=== PATIENT | female | born 1990 | race Caucasian/White ===

== ENCOUNTER → 2017-01-14 | Outpatient (CLI) | payer BC | END | disposition home or self-care (01) | LOC: CFH 10:53 | PROVIDERS: ATTEND Internal Medicine Cardiovascular Disease | DX: I51.7 Cardiomegaly (principal) | CPT/HCPCS: 93306 ==

== ENCOUNTER 2018-02-10 07:29 | Inpatient (IN) | payer BC, OTHER ==
[~2018-02-10] VITALS: Ht 162.6 cm; Wt 103.0 kg
[2018-02-10] MEDS ORDERED: D5%-LACTATED RINGERS 1,000 ML IV SCH (21:23)
[2018-02-10] MEDS ORDERED: OXYTOCIN 30U/ 0.9% NaCL 500ML 500 ML IV PRN (21:23)
[2018-02-10] MEDS ORDERED: OXYTOCIN 30U/ 0.9% NaCL 500ML 500 ML IV ONE (21:23)
[2018-02-10 21:30] VITALS: BP 119/59
[2018-02-10] MEDS ORDERED: NEWBORN KIT ONE (21:30)
[2018-02-10] MEDS ORDERED: FENTANYL PF 100 MCG/2ML IVPush PRN (21:30)
[2018-02-10] MEDS ORDERED: MISOPROSTOL 25 MCG TABLET ONE (21:30)
[2018-02-10] MEDS ORDERED: FENTANYL PF 100 MCG/2ML IV PRN (21:30)
[2018-02-10] MEDS ORDERED: ONDANSETRON 2MG/ML, 2ML IVPush PRN (21:30)
[2018-02-10] MEDS ORDERED: MISOPROSTOL 200 MCG TABLET ONE (21:31)
[2018-02-10] MEDS ORDERED: OXYTOCIN 30U/ 0.9% NaCL 500ML 500 ML ONE (21:31)
[2018-02-10 21:43] LABS: BASOPHILS # (AUTO) 0.03 x10^3/uL (0-0.1); BASOPHILS % (AUTO) 0 % (0-1); EOSINOPHILS # (AUTO) 0.11 x10^3/uL (0-0.4); EOSINOPHILS % (AUTO) 1 % (1-7); LYMPHOCYTES # (AUTO) 1.76 x10^3/uL (1-3.4); LYMPHOCYTES % (AUTO) 21 % (22-44); MD NO; MEAN CORPUSCULAR HEMOGLOBIN 25.9 pg (27.0-34.8); MEAN CORPUSCULAR HGB CONC 32.7 g/dL (32.4-35.8); MONOCYTES # (AUTO) 0.72 x10^3/uL (0.2-0.8); MONOCYTES % (AUTO) 9 % (2-9); NEUTROPHILS % (AUTO) 69 % (42-75); PLATELET COUNT 289 x10^3/uL (130-400); RED CELL DISTRIBUTION WIDTH 19.8 % (9.6-15.2)
[2018-02-10] MEDS: LACTATED RINGERS 1,000 ML IV SCH (22:00)
[2018-02-10] MEDS ORDERED: PLEASE ENTER ALLERGIES MC SCH (22:30)
[2018-02-11] MEDS: LACTATED RINGERS 1,000 ML IV SCH ×3 (05:08→15:38)
[2018-02-11] MEDS ORDERED: MISOPROSTOL 25 MCG TABLET ONE ×2 (10:31→14:34)
[2018-02-11] MEDS: MISOPROSTOL 25 MCG TABLET VG PRN ×2 (10:34→14:42)
== END 2018-02-11 23:05 | disposition home or self-care (01) | DRG 833 ==
LOC: LDIP 21:21
PROVIDERS: ADMIT Obstetrics & Gynecology Maternal & Fetal Medicine; ATTEND Obstetrics & Gynecology Maternal & Fetal Medicine
DX: O26.893 Other specified pregnancy related conditions, third trimester (principal); O61.9 Failed induction of labor, unspecified; Z3A.39 39 weeks gestation of pregnancy
CPT/HCPCS: 36415; 85025; 86850; 86900; G0378; J2590; J7120

== ENCOUNTER 2018-02-17 22:13 | Inpatient (IN) | payer OTHER ==
[~2018-02-17] VITALS: Ht 162.6 cm; Wt 103.2 kg
[2018-02-17] MEDS ORDERED: NEWBORN KIT ONE ×2 (22:20→22:45)
[2018-02-17] MEDS ORDERED: LIDOCAINE/PF 1%, 30ML ONE (22:45)
[2018-02-17] MEDS ORDERED: MISOPROSTOL 200 MCG TABLET ONE (22:45)
[2018-02-17] MEDS ORDERED: OXYTOCIN 30U/ 0.9% NaCL 500ML 500 ML ONE (22:45)
[2018-02-17] MEDS ORDERED: OXYTOCIN 30U/ 0.9% NaCL 500ML 500 ML IV ONE (22:48)
[2018-02-17] MEDS ORDERED: OXYTOCIN 30U/ 0.9% NaCL 500ML 500 ML IV PRN (22:48)
[2018-02-17] MEDS ORDERED: D5%-LACTATED RINGERS 1,000 ML IV SCH (22:48)
[2018-02-17 22:50] VITALS: BP 123/71
[2018-02-17] MEDS ORDERED: MISOPROSTOL 25 MCG TABLET ONE (22:55)
[2018-02-17] MEDS ORDERED: TERBUTALINE 1 MG/ML, 1ML IVPush PRN (23:00)
[2018-02-17] MEDS ORDERED: CALCIUM CARBONATE 500 MG TAB.CHEW PO PRN (23:00)
[2018-02-17] MEDS ORDERED: MISOPROSTOL 25 MCG TABLET VG PRN (23:00)
[2018-02-17] MEDS ORDERED: FENTANYL PF 100 MCG/2ML IV PRN (23:00)
[2018-02-17] MEDS ORDERED: ONDANSETRON 2MG/ML, 2ML IVPush PRN (23:00)
[2018-02-17] MEDS ORDERED: PREN1TAB60 PO (23:01)
[2018-02-17] MEDS ORDERED: Iron PO (23:01)
[2018-02-17 23:22] LABS: BASOPHILS # (AUTO) 0.02 x10^3/uL (0-0.1); BASOPHILS % (AUTO) 0 % (0-1); EOSINOPHILS # (AUTO) 0.09 x10^3/uL (0-0.4); EOSINOPHILS % (AUTO) 1 % (1-7); LYMPHOCYTES # (AUTO) 1.99 x10^3/uL (1-3.4); LYMPHOCYTES % (AUTO) 21 % (22-44); MD NO; MEAN CORPUSCULAR HEMOGLOBIN 25.8 pg (27.0-34.8); MEAN CORPUSCULAR HGB CONC 32.7 g/dL (32.4-35.8); MEAN CORPUSCULAR VOLUME 78.7 fL (80-100); MEAN PLATELET VOLUME 8.3 fL (7.4-10.4); MONOCYTES # (AUTO) 0.79 x10^3/uL (0.2-0.8); MONOCYTES % (AUTO) 8 % (2-9); NEUTROPHILS # (AUTO) 6.51 x10^3/uL (1.8-6.8); NEUTROPHILS % (AUTO) 69 % (42-75); PLATELET COUNT 306 x10^3/uL (130-400); RED CELL DISTRIBUTION WIDTH 19.6 % (9.6-15.2)
[2018-02-17] MEDS: LACTATED RINGERS 1,000 ML IV SCH (23:23)
[2018-02-18] MEDS: LACTATED RINGERS 1,000 ML IV SCH (04:37)
[2018-02-18] MEDS ORDERED: ACETAMINOPHEN 325 MG TABLET ONE (06:12)
[2018-02-18] MEDS ORDERED: FENTANYL PF 100 MCG/2ML ONE ×2 (09:33→10:49)
[2018-02-18] MEDS: FENTANYL PF 100 MCG/2ML IVPush PRN ×2 (09:35→10:53)
[2018-02-18] MEDS ORDERED: OXYTOCIN 30U/ 0.9% NaCL 500ML 500 ML IV SCH (10:51)
[2018-02-18] MEDS ORDERED: MISOPROSTOL 200 MCG TABLET PR PRN (11:00)
[2018-02-18] MEDS ORDERED: DIPH,PERTUSS(ACELL),TET VAC/PF NC IM-VACC PRN (11:00)
[2018-02-18] MEDS ORDERED: METHYLERGONOVINE 0.2 MG/ML IM PRN (11:00)
[2018-02-18] MEDS ORDERED: CARBOPROST TROMETHAMINE 250 MCG/ML, 1ML IM PRN (11:00)
[2018-02-18] MEDS ORDERED: DOCUSATE 100 MG CAPSULE PO PRN (11:00)
[2018-02-18] MEDS ORDERED: MEASLES,MUMPS&RUBELLA VACC/PF 0.5 ML SQ PRN (11:00)
[2018-02-18] MEDS ORDERED: OXYcodone/APAP 10/325MG TABLET ONE (12:07)
[2018-02-18] MEDS ORDERED: OXYcodone/APAP 5/325MG TABLET ONE (12:08)
[2018-02-18] MEDS ORDERED: IBUPROFEN 600 MG TABLET ONE ×2 (12:08→12:11)
[2018-02-18] MEDS: IBUPROFEN 600 MG TABLET PO PRN ×2 (12:17→19:42)
[2018-02-18] MEDS ORDERED: OXYcodone/APAP 5/325MG TABLET PO PRN ×2 (12:30)
[2018-02-18 13:40] VITALS: BP 115/72
[2018-02-18 18:07] VITALS: BP 117/76
[2018-02-18 18:38] LABS: BASOPHILS # (AUTO) 0.04 x10^3/uL (0-0.1); BASOPHILS % (AUTO) 0 % (0-1); EOSINOPHILS # (AUTO) 0.02 x10^3/uL (0-0.4); EOSINOPHILS % (AUTO) 0 % (1-7); LYMPHOCYTES # (AUTO) 1.65 x10^3/uL (1-3.4); LYMPHOCYTES % (AUTO) 13 % (22-44); MD NO; MEAN CORPUSCULAR HEMOGLOBIN 26.1 pg (27.0-34.8); MEAN CORPUSCULAR HGB CONC 32.8 g/dL (32.4-35.8); MEAN CORPUSCULAR VOLUME 79.6 fL (80-100); MEAN PLATELET VOLUME 8.5 fL (7.4-10.4); MONOCYTES # (AUTO) 0.98 x10^3/uL (0.2-0.8); MONOCYTES % (AUTO) 8 % (2-9); NEUTROPHILS # (AUTO) 10.36 x10^3/uL (1.8-6.8); NEUTROPHILS % (AUTO) 79 % (42-75); PLATELET COUNT 282 x10^3/uL (130-400); RED BLOOD COUNT 4.41 x10^6/uL (3.82-5.3); RED CELL DISTRIBUTION WIDTH 19.3 % (9.6-15.2)
[2018-02-18 19:20] VITALS: BP 117/70
[2018-02-19 00:05] VITALS: BP 105/67
[2018-02-19 03:55] VITALS: BP 113/72
[2018-02-19 08:01] VITALS: BP 120/88
[2018-02-19] MEDS ORDERED: PRENATAL VIT/IRON/FA 1 EACH TABLET PO SCH (09:00)
[2018-02-19] MEDS ORDERED: IBUP-1222 PO (11:44)
== END 2018-02-19 12:50 | disposition home or self-care (01) | DRG 807 ==
LOC: LDIP 22:13 → 2NW 02-18 13:16
PROVIDERS: ADMIT Obstetrics & Gynecology Maternal & Fetal Medicine; ATTEND Obstetrics & Gynecology Maternal & Fetal Medicine
PROC: 3E033VJ Introduction of Other Hormone into Peripheral Vein, Percutaneous Approach (ICD-10-PCS; principal; 2018-02-18)
PROC: 10E0XZZ Delivery of Products of Conception, External Approach (ICD-10-PCS; 2018-02-18)
DX: O70.0 First degree perineal laceration during delivery (principal); Z37.0 Single live birth; Z3A.40 40 weeks gestation of pregnancy
CPT/HCPCS: 36415; 85025; 86850; 86900; 90715; G0378; J3010; J2590; J7120

== ENCOUNTER 2019-07-05 13:52 | Day surgery (SDC) | payer SELFPAY ==
[~2019-07-05] VITALS: Ht 165.1 cm; Wt 101.3 kg
[~2019-07-05 13:52] MED LIST: IBUP-1222 PO; Iron PO; PREN1TAB60 PO
[2019-07-05] MEDS ORDERED: LACTATED RINGERS 1,000 ML IV SCH (14:09)
[2019-07-05 14:20] VITALS: BP 145/83
[2019-07-05] MEDS ORDERED: PLEASE ENTER HEIGHT AND WEIGHT MC SCH (14:30)
[2019-07-05 14:44] LABS: BASOPHILS # (AUTO) 0.04 x10^3/uL (0-0.1); BASOPHILS % (AUTO) 0 % (0-1); EOSINOPHILS # (AUTO) 0.06 x10^3/uL (0-0.4); EOSINOPHILS % (AUTO) 1 % (1-7); LYMPHOCYTES # (AUTO) 2.03 x10^3/uL (1-3.4); LYMPHOCYTES % (AUTO) 22 % (22-44); MD NO; MEAN CORPUSCULAR HEMOGLOBIN 24.3 pg (27.0-34.8); MEAN CORPUSCULAR HGB CONC 31.9 g/dL (32.4-35.8); MEAN CORPUSCULAR VOLUME 76.1 fL (80-100); MEAN PLATELET VOLUME 7.6 fL (7.4-10.4); MONOCYTES # (AUTO) 0.61 x10^3/uL (0.2-0.8); MONOCYTES % (AUTO) 7 % (2-9); NEUTROPHILS # (AUTO) 6.46 x10^3/uL (1.8-6.8); NEUTROPHILS % (AUTO) 70 % (42-75); PLATELET COUNT 390 x10^3/uL (130-400); RED BLOOD COUNT 4.92 x10^6/uL (3.82-5.3)
[2019-07-05 14:54] LABS: ANION GAP 7 mmol/L (5-15); CALCIUM 9.6 mg/dL (8.5-10.1); CHLORIDE 107 mmol/L (98-107); CREATININE 0.67 mg/dL (0.55-1.02)
[2019-07-05] MEDS ORDERED: MISOPROSTOL 200 MCG TABLET ONE (15:39)
[2019-07-05] MEDS ORDERED: OXYTOCIN 10 UNITS/ML, 1ML ONE (15:39)
[2019-07-05] MEDS ORDERED: SILVER NITRATE STICK TP ONE (15:39)
[2019-07-05] MEDS ORDERED: VASOPRESSIN 20 UNIT/ML, 1ML ONE ×2 (15:39→15:40)
[2019-07-05] MEDS ORDERED: METHYLERGONOVINE 0.2 MG/ML IM ONE (15:39)
[2019-07-05] MEDS ORDERED: FENTANYL PF 250 MCG/5ML ONE (15:48)
[2019-07-05] MEDS ORDERED: SUCCINYLCHOLINE 20 MG/ML, 10ML ONE (15:48)
[2019-07-05] MEDS ORDERED: ROCURONIUM 10MG/ML,5ML ONE (15:48)
[2019-07-05] MEDS ORDERED: PROPOFOL 10 MG/ML, 20ML ONE (15:48)
[2019-07-05] MEDS ORDERED: MIDAZOLAM 1 MG/ML, 2ML ONE (15:48)
[2019-07-05] MEDS ORDERED: DEXAMETHASONE 4 MG/ML, 1ML ONE (15:50)
[2019-07-05] MEDS ORDERED: CEFAZOLIN 1,000 MG ONE (15:59)
[2019-07-05] MEDS ORDERED: KETOROLAC 30 MG/1 ML ONE (15:59)
[2019-07-05] MEDS ORDERED: ONDANSETRON 2MG/ML, 2ML ONE (16:26)
[2019-07-05] MEDS ORDERED: FENTANYL PF 100 MCG/2ML ONE (16:44)
[2019-07-05] MEDS: FENTANYL PF 100 MCG/2ML IV PRN ×2 (16:45→16:55)
[2019-07-05] MEDS ORDERED: PROMETHAZINE 25 MG/ML, 1ML IV PRN (17:00)
[2019-07-05] MEDS ORDERED: ACETAMINOPHEN 325 MG TABLET PO PRN (17:00)
[2019-07-05] MEDS ORDERED: HALOPERIDOL 5 MG/ML IV PRN (17:00)
[2019-07-05] MEDS ORDERED: DIAZEPAM 5 MG/ML, 2ML IVPush PRN (17:00)
[2019-07-05] MEDS ORDERED: ONDANSETRON ODT 8 MG PO PRN (17:00)
[2019-07-05] MEDS ORDERED: hydrALAzine 20 MG/ML, 1ML IV PRN (17:00)
[2019-07-05] MEDS ORDERED: OXYcodone 5 MG/5 ML ORAL.SOL UDC PO PRN (17:00)
[2019-07-05] MEDS ORDERED: LABETALOL 5MG/ML, 20ML IV PRN (17:00)
[2019-07-05] MEDS ORDERED: EPHEDRINE 50 MG/ML, 1ML IVPush PRN (17:00)
[2019-07-05] MEDS ORDERED: MEPERIDINE/PF 25MG/ML,1ML IVPush PRN (17:00)
[2019-07-05] MEDS ORDERED: ONDANSETRON 2MG/ML, 2ML IV PRN (17:00)
[2019-07-05] MEDS ORDERED: HYDROmorphone 2 MG/ML, 1ML IVPush PRN (17:00)
[2019-07-05] MEDS ORDERED: PROMETHAZINE 12.5 MG SUPP PR PRN (17:00)
[2019-07-05] MEDS ORDERED: MIDAZOLAM 1 MG/ML, 2ML IV PRN (17:00)
[2019-07-05] MEDS ORDERED: ALBUTEROL SULFATE 2.5 MG/3 ML NPPB PRN (17:00)
== END 2019-07-05 18:00 | disposition home or self-care (01) ==
LOC: OR 13:52
PROVIDERS: ATTEND Obstetrics & Gynecology Maternal & Fetal Medicine
DX: O02.1 Missed abortion (principal); E66.9 Obesity, unspecified
CPT/HCPCS: 36415; 59820; 80048; 84702; 85025; 88305; J0330; J0690; J1100; J1885; J2250; J2405; J2704; J3010; J7120; J2210; J2590